=== PATIENT | female | born 1980 | race Caucasian/White ===

== ENCOUNTER 2018-08-26 06:02 | Day surgery (SDC) | payer OTHER ==
[2018-08-25 08:15] VITALS: BMI 23.0
[2018-08-26] MEDS ORDERED: fentaNYL CITRATE 250 MCG/5 ML VIAL ONE (07:08)
[2018-08-26] MEDS ORDERED: PROPOFOL 20 ML ONE (07:08)
[2018-08-26] MEDS ORDERED: MIDAZOLAM HCL 2 MG/2 ML SINGLE DOSE VIAL ONE ×2 (07:09→07:41)
[2018-08-26] MEDS ORDERED: LIDOCAINE HCL/PF 2% SDV 5ML VIAL ONE ×2 (07:09→07:48)
[2018-08-26] MEDS ORDERED: DEXAMETHASONE SOD PHOSPHATE 4 MG/1 ML VIAL ONE ×2 (07:09→08:02)
[2018-08-26] MEDS ORDERED: ROCURONIUM BROMIDE 50 MG/5 ML SYRINGE ONE ×2 (07:09→07:53)
[2018-08-26] MEDS ORDERED: COCAINE HCL 4% TOPICAL SOLUTION 4 ML BOTTLE TP ONE ×2 (07:21→08:01)
[2018-08-26] MEDS ORDERED: LIDOCAINE 1%-EPI 1:100,000 30 ML MDV IJ ONE (07:26)
[2018-08-26] MEDS ORDERED: BACITRACIN 15 GM TUBE TOPICAL OINTMENT ONE (07:26)
[2018-08-26] MEDS ORDERED: SUCCINYLCHOLINE CHLORIDE 200 MG/10 ML SYRINGE ONE (07:41)
--- NOTE | 2018-08-26 07:43 | HP ---
Admitting History and Physical - Admission Chief Complaint: Nasal congestion, repeated sinusitis, loss of smell History of Present Illness: Several years of sinus problems related to nasal polyps, that are now refractory to lavages, abx, sprays, steroids, abx, allergy meds. History Source: Patient, Family Member, Medical Record Limitations to Obtaining History: No Limitations - Past Medical History ...LMP: 08/09/18 ...LMP Comment: REGULAR ...: No Heme/Onc: Yes: Anemia - Smoking History Smoking history: Never smoked Have you smoked in the past 12 months: No - Alcohol/Substance Use Hx Alcohol Use: No Home Medications - Allergies Allergies/Adverse Reactions: Allergies Allergy/AdvReac Type Severity Reaction Status Date / Time No Known Allergies Allergy Verified 08/26/18 06:40 - Home Medications Home Medications: Ambulatory Orders Ferrous Sulfate 325 mg PO DAILY 08/25/18 Multivitamin 1 tab PO DAILY 08/25/18 Folic Acid 1 mg PO DAILY 08/26/18 Physical Examination Vital Signs: Vital Signs Temperature 98.6 F 08/26/18 06:31 Pulse Rate 76 08/26/18 06:31 Respiratory Rate 16 08/26/18 06:31 Blood Pressure 135/77 08/26/18 06:31 O2 Sat by Pulse Oximetry (%) 100 08/26/18 06:31 Constitutional: Yes: Well Nourished, No Distress, Calm Eyes: Yes: WNL, Conjunctiva Clear, EOM Intact HENT: Yes: WNL, Atraumatic, Normocephalic Neck: Yes: WNL, Supple Cardiovascular: Yes: WNL, Regular Rate and Rhythm Respiratory: Yes: WNL, Regular Gastrointestinal: Yes: WNL, Normal Bowel Sounds Problem List - Problems (1) Sinusitis chronic, ethmoidal Assessment/Plan: For sinus surgery Code(s): J32.2 - CHRONIC ETHMOIDAL SINUSITIS
[2018-08-26] MEDS ORDERED: ceFAZolin SODIUM 1 GM VIAL ONE (08:00)
[2018-08-26] MEDS ORDERED: SODIUM CHLORIDE 0.9% P/F 10 ML VIAL IJ ONE (08:00)
[2018-08-26] MEDS ORDERED: LIDOCAINE 1%/EPI 1:100000 (20 ML MULTI DOSE VIAL) IJ ONE (08:02)
[2018-08-26] MEDS ORDERED: GLYCOPYRROLATE 0.2 MG/1 ML VIAL ONE (08:54)
[2018-08-26] MEDS ORDERED: NEOSTIGMINE METHYLSULFATE 0.5 MG/ML - 10 ML MDV ONE (08:54)
[2018-08-26] MEDS ORDERED: PROMETHAZINE HCL 25 MG/1 ML VIAL IVPB PRN (09:19)
[2018-08-26] MEDS ORDERED: ONDANSETRON 4 MG/2 ML VIAL IVPUSH PRN (09:19)
[2018-08-26] MEDS ORDERED: LACTATED RINGERS SOLUTION 1,000 ML IV SCH (09:30)
[2018-08-26] MEDS ORDERED: ONDANSETRON 4 MG/2 ML VIAL ONE (10:39)
[2018-08-26] MEDS ORDERED: ACETAMINOPHEN 325 MG TABLET (FP) PO ONE (11:15)
[2018-08-26] MEDS ORDERED: ACETAMINOPHEN 325 MG TABLET (FP) ONE (11:20)
[2018-08-26] MEDS ORDERED: ACETAMINOPHEN 325 MG TABLET (FP) PO PRN (11:33)
[2018-08-26 11:51] VITALS: BP 118/75; PULSE 102; TEMP 97.5
--- NOTE | 2018-08-27 12:26 | OP ---
DATE OF OPERATION: 08/26/2018 PREOPERATIVE DIAGNOSIS: Chronic sinusitis, nasal polyposis, turbinate hypertrophy, deviated septum. SURGEON: Jose Eduardo Pool MD ANESTHESIA: General. INDICATIONS FOR OPERATION: This is a 38-year-old woman with longstanding history of nasal polyposis and sinusitis, who has been treated with irrigation with budesonide, oral steroids, steroid spray, antibiotics, antihistamines, allergy treatment, and since she has been having nausea, nasal congestion, postnasal drip, and persistent sinusitis despite multiple courses of medications. We discussed the risks and benefits to the procedure, and all questions were answered. PROCEDURE WENT FOLLOWS: Patient was brought to the operating room and placed under general anesthesia. A [employer] navigation machine was brought in the room, and after she was prepped and draped, the [employer] machine was calibrated. Her nose was decongested with 4% cocaine Cottonoid pledgets on both sides. After decongesting the nose, 1% lidocaine with 1:100,000 epinephrine was injected into the lateral nasal wall, into the middle turbinate and polyps, and inferior turbinate as well on both sides. The Cottonoids were placed, and then, after decongesting her nose, and after she was prepped and draped, a 0-degree endoscope was used to examine the nose, also noted on both nasal cavities, both medial and lateral to the middle turbinate. The surgery was performed first on the right side. Polyps were exonerated using the microdebrider in the middle meatus. The polyps appeared to be extending off the middle turbinate. Polyps were removed medial to the middle turbinate. There were some polyps high in the base of the skull, which were not shaved. The [employer] navigation dictated that it was at least 3 mm from the skull base, and I did not follow the swollen tissue any further. There appeared to be an accessory ostia of the maxillary sinus anterior to the uncinate. I was able to suction material from within maxillary sinus through this ostia. Then, I peeled the uncinate forward and dilated the maxillary sinus twice with a [employer] maxillary balloon, and then suctioned the maxillary sinus also through that ostia with a curved guided suction. The maxillary sinus was irrigated and the straight finger-tip suction was used to break up the ethmoid bulla, and the ethmoid was entered using the microdebrider. Dissection was carried past the ground lamella. The dissection was carried mostly in the inferior portion of the ethmoid sinus, removing polyps from the ethmoid cavity and the lateral portion of the middle turbinate. All visible polyps were removed. Cottonoid was then replaced into the ethmoid cavity. The inferior turbinate was outfractured with the long needle speculum on the right side. On the left side, there was a larger amount of polyps, also was a polyp medial to the middle turbinate. I removed the portion that was attached to the middle turbinate. Polypoid tissue from high in the nasal cavity was not followed. The uncinate was resected using a [place] elevator. The ethmoid bulla was entered using a straight finger-tip suction. The microdebrider was used to exonerate the ethmoid cavity past and posterior to the ground lamella following the polyp tissue. The ostia of the maxillary sinus was opened with a microdebrider anteriorly and inferiorly. Some tissue from the maxillary sinus was removed using the microdebrider. Cottonoid was placed in the right cavity, and then the inferior turbinates were outfractured using the long needle speculum. I cauterized both inferior turbinates with 3 passes of the bipolar Elmed cautery, and then packed both ethmoid cavities with NasoPore packing with Bacitracin. The nose was suctioned, and the patient was extubated in the operating room and brought to the recovery room in stable condition. Jono [id number]
--- NOTE | 2018-08-27 16:21 | PATH ---
Surgical Pathology Report Patient Name: AIDA PINEDA Med. Rec. #: [id number] /Age/Gender: 1980 (Age: 38) / F Account: [id number] Location: [facility] SURGICAL Taken: 08/26/2018 Received: 08/26/2018 Reported: 08/27/2018 Physicians: Jose Eduardo Pool M.D. Specimen(s) Received NASAL, ETHMOID AND MAXILLARY SINUS Clinical History Hypertrophy of nasal turbinates Final Diagnosis NASAL, ETHMOID, AND MAXILLARY SINUS, EXCISION: CHRONIC SINUSITIS. SEPARATE FRAGMENTS OF BONE WITH NO SIGNIFICANT PATHOLOGIC CHANGE. Electronically Signed Carly Ramirez M.D. Gross Description Received in formalin labeled "nasal, ethmoid, maxillary sinus," is a 3.5 x 2.2 x 0.3 cm aggregate of thakkar soft tissue fragments. The formalin is filtered and the specimen is entirely submitted in one cassette. /08/26/2018 saudi/08/26/2018
== END 2018-08-26 12:05 | disposition home or self-care (01) ==
LOC: JASU-SURG 06:02
PROVIDERS: ATTEND Otolaryngology
PROC: 09BV8ZZ Excision of Left Ethmoid Sinus, Via Natural or Artificial Opening Endoscopic (ICD-10-PCS; 2018-08-26)
PROC: 09BU8ZZ Excision of Right Ethmoid Sinus, Via Natural or Artificial Opening Endoscopic (ICD-10-PCS; 2018-08-26)
PROC: 09BK8ZX Excision of Nasal Mucosa and Soft Tissue, Via Natural or Artificial Opening Endoscopic, Diagnostic (ICD-10-PCS; 2018-08-26)
PROC: 8E09XBZ Computer Assisted Procedure of Head and Neck Region (ICD-10-PCS; principal; 2018-08-26 07:30)
DX: J32.8 Other chronic sinusitis (principal); J33.8 Other polyp of sinus; J34.3 Hypertrophy of nasal turbinates; J34.2 Deviated nasal septum; D57.3 Sickle-cell trait
CPT/HCPCS: 84703; 88304-TC; 94760